=== PATIENT | male | born 1975 | race Caucasian/White ===

== ENCOUNTER 2016-12-22 10:11 | Emergency (ER) | payer SELFPAY ==
[2016-12-22 11:19] VITALS: BP 124/73
[2016-12-22] MEDS ORDERED: Albuterol/Ipratropium NEB.SOL* Albuterol 2.5 MG/Ipratropium 0.5 MG 3 ML INH ONE (11:29)
--- NOTE | 2016-12-22 11:56 | RAD ---
INDICATION: Cough and wheezing. COMPARISON: There are no prior studies available for comparison. TECHNIQUE: Dual-energy PA and lateral views of the chest were obtained. FINDINGS: The heart is within normal limits in size. Mediastinal and hilar contours appear within normal limits. The lungs are clear. No pleural effusion is present. IMPRESSION: NO EVIDENCE FOR ACTIVE CARDIOPULMONARY DISEASE.
--- NOTE | 2016-12-22 13:04 | UC ---
Throat Pain/Nasal Roshan HPI - HPI Summary HPI Summary: TWO WEEKS OF COUGH CONGESTION WHEEZING, SORE THROAT FROM COUGHING. NO FEVER. - History of Current Complaint Chief Complaint: UCRespiratory Stated Complaint: CHEST CONGESTION,COUGH Time Seen by Provider: 12/22/16 11:22 Hx Obtained From: Patient Onset/Duration: Gradual Onset, Lasting Weeks, Still Present Severity: Moderate Pain Intensity: 0 Pain Scale Used: 0-10 Numeric Cough: Productive Associated Signs & Symptoms: Positive: Hoarseness, Sinus Discomfort, Nasal Discharge - Epiglottits Risk Factors Epiglottis Risk Factors: Negative - Allergies/Home Medications Allergies/Adverse Reactions: Allergies Allergy/AdvReac Type Severity Reaction Status Date / Time Amoxicillin Allergy Rash Verified 12/22/16 11:20 Home Medications: Home Medications traMADol TAB* [Ultram*] 12/22/16 [History Confirmed 12/22/16] traZODone TAB* [Desyrel TAB*] 12/22/16 [History] PMH/Surg Hx/FS Hx/Imm Hx Previously Healthy: Yes Endocrine History Of: Denies: Diabetes, Thyroid Disease Cardiovascular History Of: Denies: Cardiac Disorders, Hypertension Respiratory History Of: Reports: Bronchitis Denies: COPD, Asthma GI/ History Of: Denies: Ulcer Psychological History Of: Reports: Depression - Surgical History Surgical History: None Surgery Procedure, Year, and Place: Oral Surgery. Hernia Repair age 4 - Family History Known Family History: Positive: Respiratory Disease - Social History Occupation: Employed Full-time Lives: With Family Alcohol Use: Rare Substance Use Type: None Smoking Status (MU): Never Smoked Tobacco - Immunization History Most Recent Influenza Vaccination: unknown Most Recent Tetanus Shot: "up to date" Most Recent Pneumonia Vaccination: Never Review of Systems Constitutional: Negative Skin: Negative Eyes: Negative ENT: Sore Throat, Nasal Discharge Respiratory: Cough Cardiovascular: Negative Gastrointestinal: Negative Genitourinary: Negative Motor: Negative Neurovascular: Negative Musculoskeletal: Negative Neurological: Negative Psychological: Negative All Other Systems Reviewed And Are Negative: Yes Physical Exam Triage Information Reviewed: Yes Appearance: No Pain Distress, Well-Nourished, Ill-Appearing Vital Signs: Initial Vital Signs Temp 99.7 F 12/22/16 11:16 Pulse 99 12/22/16 11:16 Resp 18 12/22/16 11:16 BP 124/73 12/22/16 11:16 Pulse Ox 98 12/22/16 11:16 Vital Signs Reviewed: Yes Eye Exam: Normal Eyes: Positive: Conjunctiva Clear ENT Exam: Normal ENT: Positive: Normal ENT inspection, Hearing grossly normal, Pharynx normal, TMs normal Dental Exam: Normal Neck exam: Normal Neck: Positive: Supple, Nontender Respiratory Exam: Normal Respiratory: Positive: Chest non-tender, Lungs clear Cardiovascular Exam: Normal Cardiovascular: Positive: RRR, No Murmur Abdominal Exam: Normal Abdomen Description: Positive: Nontender, No Organomegaly Musculoskeletal Exam: Normal Neurological Exam: Normal Psychological Exam: Normal Psychological: Positive: Normal Response To Family Skin Exam: Normal Throat Pain/Nasal Course/Dx - Differential Dx/Diagnosis Differential Diagnosis/HQI/PQRI: Sinusitis, Tonsillitis, URI Provider Diagnoses: SINUSITIS. BRONCHITIS WITH BRONCHOSPASM Discharge - Discharge Plan Condition: Stable Disposition: HOME Prescriptions: Albuterol HFA INHALER* [Ventolin HFA Inhaler*] 1 - 2 puff INH Q6H PRN #1 mdi PRN Reason: Wheezing DOXYcycline CAP(*) [DOXYcycline 100MG CAP(*)] 100 mg PO BID #20 cap Patient Education Materials: Sinusitis (ED), Acute Bronchitis (ED), Bronchospasm (ED) Forms: *Work Release Referrals: Dulce Ball MD [Primary Care Provider] -
== END 2016-12-22 12:22 | disposition home or self-care (01) ==
LOC: UCEAST 10:11
DX: J32.9 Chronic sinusitis, unspecified (principal); J40 Bronchitis, not specified as acute or chronic; J98.01 Acute bronchospasm
CPT/HCPCS: 71020; 99212; A9270-GY; G0463

== ENCOUNTER 2017-07-05 16:24 | Emergency (ER) | payer SELFPAY ==
--- NOTE | 2017-07-05 17:58 | ED ---
Upper Extremity Pain - HPI Summary HPI Summary: 41M presents with right shoulder injury. He states he was tightening lug nuts on his tires when felt a pull in his shoulder. He states pain is over posterior aspect of shoulder. no numbness or tingling. has full ROM with pain. pain does not radiate anywhere. pain is 6/10. 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 - History of Current Complaint Chief Complaint: EDExtremityUpper Stated Complaint: RT SHOULDER INJURY Time Seen by Provider: 07/05/17 17:00 - Allergies/Home Medications Allergies/Adverse Reactions: Allergies Allergy/AdvReac Type Severity Reaction Status Date / Time Amoxicillin Allergy Rash Verified 12/22/16 11:20 PMH/Surg Hx/FS Hx/Imm Hx Endocrine/Hematology History: Denies: Hx Diabetes, Hx Thyroid Disease Cardiovascular History: Denies: Hx Hypertension Respiratory History: Denies: Hx Asthma, Hx Chronic Obstructive Pulmonary Disease (COPD) GI History: Denies: Hx Ulcer Psychiatric History: Reports: Hx Depression, Hx Inpatient Treatment, Hx Community Mental Health Tx, Hx Substance Abuse Denies: Hx Eating Disorder, Hx of Violent Episodes Against Others - Surgical History Surgery Procedure, Year, and Place: Oral Surgery. Hernia Repair age 4 Infectious Disease History: No Infectious Disease History: Denies: Hx Hepatitis, Hx Human Immunodeficiency Virus (HIV), Traveled Outside the [place] in Last 30 Days - Family History Known Family History: Positive: Respiratory Disease - Social History Alcohol Use: Rare Substance Use Type: Reports: None Smoking Status (MU): Never Smoked Tobacco Review of Systems Negative: Fever Negative: Chest Pain Negative: Shortness Of Breath Positive: Myalgia - right shoulder All Other Systems Reviewed And Are Negative: Yes Physical Exam Triage Information Reviewed: Yes Vital Signs On Initial Exam: Initial Vitals Temp Pulse Resp BP Pulse Ox 98.8 F 82 20 139/81 99 07/05/17 16:26 07/05/17 16:26 07/05/17 16:26 07/05/17 16:26 07/05/17 16:26 Vital Signs Reviewed: Yes Appearance: Positive: Well-Appearing Skin: Positive: Warm, Dry Head/Face: Positive: Normal Head/Face Inspection Eyes: Positive: Normal, Conjunctiva Clear Respiratory/Lung Sounds: Positive: Clear to Auscultation, Breath Sounds Present Cardiovascular: Positive: Normal, RRR Musculoskeletal: Positive: Strength/ROM Intact - right shoulder with pain, Other - tenderness over posterior shoulder, neg drop arm but has alot of pain. 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 - Radiology shoulder Xray Interpretation: No Acute Changes Radiology Interpretation Completed By: Radiologist Course/Dx - Course Course Of Treatment: 41M presents with right shoulder injury. He states he was tightening lug nuts on his tires when felt a pull in his shoulder. He states pain is over posterior aspect of shoulder. no numbness or tingling. has full ROM with pain. pain does not radiate anywhere. pain is 6/10. on exam tender over posterior shoulder. neg drop arm but has alot of pain. pos marvin mayfield, neurovascular intact. will have follow up with ortho due to possible rotator cuff injury? patient understands and agrees with plan. - Diagnoses Differential Diagnosis/HQI/PQRI: Positive: Fracture (Closed), Strain, Sprain Provider Diagnoses: Right shoulder pain Discharge - Discharge Plan Condition: Good Disposition: HOME Patient Education Materials: Shoulder Sprain (ED) Forms: *Work Release Referrals: Addison Mendes MD [Primary Care Provider] - Vitaly Beltrán MD [Medical Doctor] - Additional Instructions: You potential have a rotator cuff injury Use sling as needed, make sure to move shoulder as tolerated Place ice on area Take Tylenol or ibuprofen every 6 hours Follow up with ortho Return to ED if develop any new or worsening symptoms
--- NOTE | 2017-07-05 17:59 | RAD ---
INDICATION: Right shoulder pain COMPARISON: None. TECHNIQUE: 6 views of the right shoulder were obtained. FINDINGS: The adequately corticated bones are in normal alignment. Joint spaces appear maintained. No fracture, dislocation or focal bony abnormality is seen. IMPRESSION: Normal radiograph of the right shoulder. If the patient's symptoms persist, follow-up imaging is recommended.
[2017-07-05 18:44] VITALS: BP 132/80
== END 2017-07-05 18:43 | disposition home or self-care (01) ==
LOC: ED 16:24
DX: M25.511 Pain in right shoulder (principal); X50.0XXA Overexertion from strenuous movement or load, initial encounter; Y93.89 Activity, other specified; Y92.9 Unspecified place or not applicable; Z88.0 Allergy status to penicillin
CPT/HCPCS: 99282

== ENCOUNTER 2020-01-02 12:46 | Emergency (ER) | payer SELFPAY ==
[2020-01-02] MEDS ORDERED: Lidocaine 2.5%/Prilocain 2.5%* 5 GM TUBE TOPICAL ONE (12:54)
[2020-01-02] MEDS ORDERED: Lidocaine 1% MPF ** 5 ML VIAL INJ ONE (12:58)
[2020-01-02] MEDS ORDERED: Bacitracin OINTMENT* 0.5% 0.5 oz TUBE TOPICAL ONE (12:59)
[2020-01-02] MEDS ORDERED: Tetan/Diph/Pertus SYR(Tdap)* 0.5 ML SYR(BOOSTRIX) use SYR contains LATEX IM ONE (13:43)
--- NOTE | 2020-01-02 13:48 | ED ---
Laceration/Wound HPI - HPI Summary HPI Summary: Patient is a 44 y/o M presenting to [facility] via EMS with complaints of a left thumb laceration and syncope episode. The patient was at work today when he cut his left thumb with a knife. The patient subsequently had a syncopal episode and fell off of a bar stool. EMS reports that the patient was pale and diaphoretic upon their arrival but vital signs were stable throughout EMS transport. The patient notes some pain to his right knee and denies head injury , abdominal pain, neck pain, and chest pain. Recent illness, cough, SOB, and fevers are denied as well. He reports no Hx of cardiac disease, HTN, diabetes. Amoxicillin allergy noted. Home medications and allergies are reviewed. - History of Current Complaint Stated Complaint: SYNCOPE AND THUMB LACERATION PER EMS Hx Obtained From: Patient Mechanism of Injury: Sharp/Blunt Trauma Onset/Duration: Still Present Current Severity: Moderate Pain Intensity: 5 Pain Scale Used: 0-10 Numeric Associated Signs & Symptoms: Negative - Allergy/Home Medications Allergies/Adverse Reactions: Allergies Allergy/AdvReac Type Severity Reaction Status Date / Time MS Amoxicillin [Amoxicillin] Allergy Rash Verified 12/22/16 11:20 Home Medications: Home Medications Gabapentin* [Neurontin*] 08/12/13 [History Confirmed 08/12/13] Albuterol HFA INHALER* [Ventolin HFA Inhaler*] 1 - 2 puff INH Q6H PRN #1 mdi [Rx] DOXYcycline CAP(*) [DOXYcycline 100MG CAP(*)] 100 mg PO BID #20 cap 12/22/16 [Rx ] traMADol TAB* [Ultram*] 12/22/16 [History Confirmed 12/22/16] traZODone TAB* [Desyrel TAB*] 12/22/16 [History] PMH/Surg Hx/FS Hx/Imm Hx Endocrine/Hematology History: Denies: Hx Diabetes, Hx Thyroid Disease Cardiovascular History: Denies: Hx Hypertension, Hx Pacemaker/ICD Respiratory History: Denies: Hx Asthma, Hx Chronic Obstructive Pulmonary Disease (COPD) GI History: Denies: Hx Ulcer Sensory History: Denies: Hx Hearing Aid Psychiatric History: Reports: Hx Depression, Hx Inpatient Treatment, Hx Community Mental Health Tx, Hx Substance Abuse Denies: Hx Eating Disorder, Hx Panic Disorder, Hx of Violent Episodes Against Others - Surgical History Surgery Procedure, Year, and Place: Oral Surgery. Hernia Repair age 4 Infectious Disease History: No Infectious Disease History: Denies: Hx Hepatitis, Hx Human Immunodeficiency Virus (HIV), Traveled Outside the [place] in Last 30 Days - Family History Known Family History: Positive: Respiratory Disease - Social History Alcohol Use: Rare Substance Use Type: Reports: None Smoking Status (MU): Never Smoked Tobacco Review of Systems Negative: Fever Negative: Chest Pain Negative: Shortness Of Breath, Cough Negative: Abdominal Pain Musculoskeletal: Other - negative - neck pain; positive - right knee pain Skin: Other - positive - left thumb laceration Neurological/Mental Status: Other - negative - head injury Positive: Syncope All Other Systems Reviewed And Are Negative: Yes Physical Exam - Summary Physical Exam Summary: Constitutional: Well-developed, Well-nourished, Alert. (-) Distressed Skin: Warm, Dry; 1 cm laceration to his distal left thumb HENT: Normocephalic; Atraumatic Eyes: Conjunctiva normal Neck: Musculoskeletal ROM normal neck. (-) JVD, (-) Stridor, (-) Tracheal deviation Cardio: Rhythm regular, rate normal, Heart sounds normal; Intact distal pulses; The pedal pulses are 2+ and symmetric. Radial pulses are 2+ and symmetric. (-) Murmur Pulmonary/Chest wall: Effort normal. (-) Respiratory distress, (-) Wheezes, (-) Rales Abd: Soft, (-) tenderness, (-) Distension, (-) Guarding, (-) Rebound Musculoskeletal: (-) Edema Lymph: (-) Cervical adenopathy Neuro: Alert, Oriented x3 Psych: Mood and affect Normal Triage Information Reviewed: Yes Vital Signs On Initial Exam: Initial Vitals Pulse Pulse Ox 68 97 01/02/20 12:48 01/02/20 12:48 Vital Signs Reviewed: Yes Musculoskeletal: Positive: Other - right knee nontender to palpation. NL ROM. Procedures - Procedure Summary Procedure Summary: Patient is noted to have a 1 cm laceration to his distal left thumb. Laceration was repaired. Topical Emla was applied followed by 2 CC injection of lidocaine 1 % w/o epi. Four sutures were placed, 5-0 prolene was used. Single layer with closure, no complications during procedure. Topical bacitracin and wound dressing applied. - Sedation Patient Received Moderate/Deep Sedation with Procedure: No - Laceration/Wound Repair 1 Location: upper extremity - left thumb Description: Linear Anesthesia: 1.0%, Lido Length, Depth and Shape: 1 cm linear laceration of distal left thumb Closure: Single Layer Suture Type: Prolene Number of Sutures: 4 Layer Closure?: Yes Sterile Dressing Applied?: Yes Diagnostics - Vital Signs Vital Signs Temp Pulse Resp BP Pulse Ox 01/02/20 12:56 73 111/75 96 01/02/20 12:51 97.5 F 72 16 111/75 97 01/02/20 12:48 68 97 - Laboratory Lab Statement: Any lab studies that have been ordered have been reviewed, and results considered in the medical decision making process. Laceration Repair Course/Dx - Course Course Of Treatment: Patient is a 44 y/o M presenting to [facility] via EMS with complaints of a left thumb laceration and syncope episode. The patient was at work today when he cut his left thumb with a knife. The patient subsequently had a syncopal episode and fell off of a bar stool. EMS reports that the patient was pale and diaphoretic upon their arrival but vital signs were stable throughout EMS transport. EMS ECG: NSR. The patient notes some pain to his right knee and denies head injury, abdominal pain, neck pain, and chest pain. Recent illness, cough, SOB, and fevers are denied as well. He reports no Hx of cardiac disease, HTN, diabetes. Amoxicillin allergy noted. Patient is noted to have a 1 cm laceration to his distal left thumb. Laceration was repaired. Topical Emla was applied followed by 2 CC injection of lidocaine 1% w/o epi. Four sutures were placed, 5-0 prolene was used. Single layer with closure, no complications during procedure. Topical bacitracin and wound dressing applied. Patient received tetanus shot. Patient was discharged to home with PCP followup in seven days for removal of stitches. - Clinical Impression Provider Diagnoses: Laceration of left thumb, Vasovagal syncope Discharge ED - Sign-Out/Discharge Documenting (check all that apply): Patient Departure - discharge - Discharge Plan Condition: Stable Disposition: HOME Patient Education Materials: Care For Your Stitches (ED), Laceration (ED), Syncope (ED) Forms: *Work Release Referrals: Addison Mendes MD [Primary Care Provider] - 7 Days Additional Instructions: HAVE YOUR STITCHES TAKEN OUT IN SEVEN DAYS. PLEASE RETURN TO ED FOR ANY NEW OR WORSENING SYMPTOMS. - Billing Disposition and Condition Condition: STABLE Disposition: Home - Attestation Statements Document Initiated by Scribe: Yes Documenting Scribe: ANICETO ANDRADE Provider For Whom Nonaibalec is Documenting (Include Credential): DANA PENNY DO Scribe Attestation: IANICETO, scribed for DANA PENNY DO on 01/02/20 at 1717. Status of Scribe Document: Viewed
[2020-01-02 14:11] VITALS: BP 106/64
== END 2020-01-02 14:09 | disposition home or self-care (01) ==
LOC: ED 12:46
DX: S61.012A Laceration without foreign body of left thumb without damage to nail, initial encounter (principal); R55 Syncope and collapse; W26.0XXA Contact with knife, initial encounter; Y92.9 Unspecified place or not applicable; Z88.0 Allergy status to penicillin; Z79.899 Other long term (current) drug therapy
CPT/HCPCS: 12001; 90471; 90715; 96374; 99282; A9270-GY